=== PATIENT | male | born 1950 | race Caucasian/White ===

== ENCOUNTER 2017-08-02 18:00 | Inpatient (IN) | payer OTHER ==
[~2017-08-02] VITALS: Ht 182.9 cm; Wt 140.6 kg
--- NOTE | ~2017-08-02 | H ---
[facility] [place] [address] HISTORY AND PHYSICAL Name: MIK ARAGON JR Room #: 363-P [facility] IN .R.#: [id number] Admission: 08/02/17 Attend Phys: Manolo Oreilly MD Discharge: Date of : 46 Report #: [id number] THIS REPORT FOR: //name// CC: Manolo Oreilly DATE OF SERVICE: 08/03/2017 CHIEF COMPLAINT: Malodorous drainage from his left foot. HISTORY OF PRESENT ILLNESS: Things had been especially busy at work, but this evening, he noticed drainage coming from his left foot that smelled bad. He came to the Emergency Room and was found to have a large subcutaneous collection of drainage and an obviously infected diabetic foot infection. There was a surrounding redness occupying most of the bottom of his left foot. Because of his diabetic neuropathy, he had no pain and actually no sensation at all in his left foot. Because of the presence of a diabetic foot ulcer, admission is indicated for full evaluation including drainage of the subcutaneous fluid collection and intravenous antibiotics, empirically initially and then guided by culture results. PAST MEDICAL HISTORY: He had a similar problem with his left foot before 2010. He stepped on a dog bone that was on the floor while walking barefoot, and then noticed the development of warmth and drainage around the bottom of the foot and was admitted to the hospital for treatment on 02/02/2012. PAST MEDICAL HISTORY: He has a long history of morbid obesity and type 2 diabetes. His blood sugars have been well controlled over the last several years, but more than likely, uncontrolled for many years before then because he has developed a diabetic neuropathy. He has very little sensation in his feet. He has obstructive sleep apnea accompany his obesity, but he does not tolerate a CPAP mask, and ends up sleeping on his side or on his stomach. He has had 44 events per sleep hour that responded to CPAP in the sleep lab, but he has been unable to tolerate it at home. 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 He had an episode of cellulitis in his right leg 8-10 years ago, he has hyperlipidemia, he has had gout in the past, and he has hyperuricemia treated with allopurinol. In 2011 his insisted that he take an antidepressant medication because he was "too cranky." Since then, his crankiness has responded to this low dose of fluoxetine and is to his 's satisfaction. He has COPD, and did require prednisone and inhalers several years ago after a [facility] [address] [place] [address] HISTORY AND PHYSICAL Name: MIK ARAGON Room #: 363-P [facility] IN M.R.#: [id number] Admission: 08/02/17 Attend Phys: Manolo Oreilly MD Discharge: Date of : 46 Report #: [id number] week with his friends at the [facility] included a good cigars. He stopped smoking. He did have some cough related to metoprolol, which resolved when it was switched to Bystolic and he has been cough free since that time. CURRENT MEDICATIONS: Spironolactone 25 mg twice a day, chlorthalidone 50 mg daily, minoxidil 10 mg twice daily, Janumet mg once daily, fluoxetine 10 mg daily, Levemir 5 units at bedtime, Victoza 1.8 mg daily, pravastatin 40 mg daily, baby aspirin daily, Bystolic 10 mg daily, allopurinol 100 mg once daily, lisinopril 40 mg daily in the evening. ALLERGIES: None known, he does develop some breathing difficulties while taking metoprolol extended release, which he does not have on Bystolic. REVIEW OF SYSTEMS: Entirely negative he reports other than the HPI above. FAMILY HISTORY: Noncontributory. SOCIAL HISTORY: He continues to overeat. His blood sugars are well controlled and his recent hemoglobin A1c was less than 6.0. 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 OBJECTIVE: GENERAL: On exam shows a 66-year-old male in no acute distress. He really did not want to stay in the hospital, but acquiesced. HEENT: Unremarkable. LUNGS: Clear. CARDIOVASCULAR: The heart tones are normal and his rhythm is minimally irregular. ABDOMEN: Soft, nontender, without hepatosplenomegaly or masses. EXTREMITIES: There is some mild edema in both lower extremities. The skin of the uninvolved right foot is intact. There is an absence of sensation to light touch, and a large callus on his great toe is intact also. His left foot shows a large fluid collection underneath the plantar skin coming up the medial surface of the foot. There are Charcot deformities suggested. There is mild redness beginning at the metatarsophalangeal junction and extending to the calcaneus, and up to the top of the foot. Palpation is nontender. There is some mild warmth present. The skin over the ulcer site is intact. ASSESSMENT: 1. Left-sided diabetic foot infection. 2. He is at risk for having already developed osteomyelitis. 3. Type 2 diabetes with dietary noncompliance in good numbers. 4. History of gout. 5. Chronic obstructive pulmonary disease, not tolerant to metoprolol succinate. 6. Hypertension. [facility] [address] [place] [address] HISTORY AND PHYSICAL Name: MIK ARAGON Room #: 363-P ADM IN M.R.#: [id number] Admission: 08/02/17 Attend Phys: Manolo Oreilly MD Discharge: Date of : 46 Report #: [id number] 7. Chronic kidney disease. 8. Hyperlipidemia, on pravastatin. 9. Mild depression/anxiety, well stabilized with fluoxetine. 10. Other medical problems as in the history and physical. PLAN: He is admitted at this time. Intravenous antibiotics are being started. He is being placed on intravenous fluids because he will be n.p.o. in the morning for possible interventions if indicated. He remains a full code. By: 38 35 Manolo Oreilly MD /nt
--- NOTE | ~2017-08-02 | EKG ---
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 : 1950 Requested By: Manolo Oreilly Order Number: [id number] MD: Jason Lam Measurements Intervals Brackney Rate: 58 P: 51 SC: QRS: -3 QRSD: 107 T: 64 QT: 462 QTc: 454 Interpretive Statements Sinus rhythm Second deg AVB, Mobitz I (Sun) Abnormal R-wave progression, early transition Baseline wander in lead(s) V3 Compared to ECG 01/29/2014 11:32:20 Mobitz type I heart block is now present Electronically Signed On 08-03-2017 15:47:29 CDT by Jason Lam [email or web address] <ELECTRONICALLY SIGNED> By: Jason Lam MD, [facility] 08/03/17 1547 [id number] [id number] Jason Lam MD, [facility] /EPI
--- NOTE | ~2017-08-02 | P ---
[facility] [place] [address] PROCEDURE REPORT Name: MIK ARAGON JR Room #: 363-P [facility] IN ..#: [id number] Admission: 08/02/17 Attend Phys: Manolo Oreilly MD Discharge: Date of : 46 Report #: [id number] THIS REPORT FOR: //name// CC: Manolo Oreilly DATE OF SERVICE: 08/03/2017 Wound Care Procedure Note DATE OF SERVICE: 08/03/2017 PERSONAL PHYSICIAN: Manolo Oreilly MD CHIEF COMPLAINT: Left diabetic foot infected blister. HISTORY OF PRESENT ILLNESS: This is a 66-year-old white male with a longstanding history of diabetes and diabetic neuropathy, who is being admitted for cellulitis of his left foot secondary to an infected bullous blister on the plantar aspect of his left foot. I was asked to debride the foot to perform incision and drainage of this blister. PREPROCEDURE DIAGNOSES: 1. Diabetic foot wound with a bullous blisters and cellulitis. 2. Diabetes mellitus with neuropathy. 3. Morbid obesity. POSTPROCEDURE DIAGNOSES: 1. Diabetic foot wound with a bullous blisters and cellulitis. 2. Diabetes mellitus with neuropathy. 3. Morbid obesity. PROCEDURE PERFORMED: This incision and drainage of an infected diabetic foot wound. DESCRIPTION OF PROCEDURE: After timeout was taken, verbal consent was obtained, the patient had incision and drainage of the bolus lesion using #10 blade and forceps. No anesthesia was used because of the neuropathy. 100% of the bullous lesion was debrided for a total of 45 square cm that were debrided. Preprocedure measurements were 5.0 x 9.0 cm. Post-debridement measurements were 5.0 x 9.1 x 0.5 cm. Bleeding was minimal, easily controlled with pressure. The patient tolerated procedure well. Post-debridement, the patient had a sterile [facility] [address] [place] [address] PROCEDURE REPORT Name: MIK ARAGON Room #: 363-P [facility] IN [facility].#: [id number] Admission: 08/02/17 Attend Phys: Manolo Oreilly MD Discharge: Date of : 46 Report #: [id number] silver foam dressing placed over the wound. Total debridement measurements were 45 square cm. By: 1859 0310 Srini Vázquez MD /nt
--- NOTE | ~2017-08-02 | HC ---
[facility] [place] [address] CONSULTATION Name: MIK ARAGON JR Room #: 363-P [facility] IN ..#: [id number] Admission: 08/02/17 Attend Phys: Manolo Oreilly MD Discharge: Date of : 48 Report #: [id number] THIS REPORT FOR: //name// CC: Manolo Oreilly DATE OF SERVICE: 08/03/2017 ATTENDING PHYSICIAN: Manolo Oreilly. REASON FOR CONSULTATION: Antibiotic management. HISTORY OF PRESENT ILLNESS: The patient is a 66-year-old white man with diabetes mellitus who developed left foot infection with some wounds and malodorous drainage. The patient is seen in the Emergency Room holding area on 08/03 and he underwent debridement of callus on the sole of the foot. He denies having had fever. PAST MEDICAL HISTORY: Hypertension. Diabetes mellitus. Gout. Left knee replacement. Charcot joint, left foot worse than right. Peripheral neuropathy. Obesity. Obstructive sleep apnea. Previous episode of foot cellulitis in 01/2012. DRUG ALLERGIES: None listed. MEDICATIONS: The patient on treatment with Zosyn 3.375 grams IV every 8 hours. I added vancomycin on the date of admission and pharmacy managing, vancomycin dosing is 1250 mg IV every 8 hours. Atorvastatin 10 mg daily, spironolactone 25 b.i.d., minoxidil 10 mg b.i.d., fluoxetine 10 mg daily, chlorthalidone 50 mg daily, metformin 1 g b.i.d., linagliptin 5 mg b.i.d., insulin lispro per sliding scale, p.r.n. ondansetron, hydrocodone, acetaminophen and sodium chloride infusion was discontinued. SOCIAL HISTORY: See H and P, old records. FAMILY HISTORY: See H and P, old records. REVIEW OF SYSTEMS: Essentially noncontributory besides what has been stated above. PHYSICAL EXAMINATION: GENERAL: Well-developed man, not toxic looking. VITAL SIGNS: Temperature 98.3, pulse 64, respirations 15 and BP 141/84. Height 6 feet, weight 310 pounds. HEENMT: Within range. NECK: Supple, no thyromegaly. LUNGS: Clear. [facility] [address] [place] [address] CONSULTATION Name: MIK ARAGON Room #: 363-P ADM IN M.R.#: [id number] Admission: 08/02/17 Attend Phys: Manolo Oreilly MD Discharge: Date of : 48 Report #: [id number] HEART: S1 and S2. No gallop. ABDOMEN: Obese, soft and no masses or megaly. EXTREMITIES: There are a couple of ulcerations on the sole of the left foot, recently debrided. The temperature of the entire left foot and leg is increased compared to the right. NEUROLOGIC: Decreased sensation in the lower extremities. LABORATORY DATA: Sodium 139, potassium 4.2, BUN 21, creatinine 1.1, glucose 121 and albumin 3.5. CRP 60.5 mg/L. WBC 11.3, hemoglobin 13.2 and platelets 259,000. ESR 49 mm per hour. MRSA by PCR negative. MICROBIOLOGY DATA: Foot culture was obtained on 08/02, no results are available on computer at the time of this dictation. RADIOLOGY EVALUATION: X-ray of the left foot revealed nonunited transverse fracture of second and third metatarsals proximally and Charcot's deformity of the midfoot. Arterial ultrasound, no significant abnormalities. MRI of the left foot revealed Charcot's arthropathy of the midfoot and no evidence of osteomyelitis or soft tissue abscess. ASSESSMENT: 1. Left diabetic foot infection, cellulitis, undetermined organism. 2. Diabetes mellitus. 3. Charcot joint, left foot, worse than right. 4. Azotemia, improved. SUGGESTIONS: Recommend continue treatment with Zosyn and added vancomycin. We will streamline antibiotics once culture results are available hopefully within 24 hours, has been already almost 48 hours since samples were sent and nothing on computer yet. Dr. Oreilly, thank you for requesting my suggestions in the care of your patient. <ELECTRONICALLY SIGNED> By: Neil Berry MD 08/05/17 0848 1339 0014 Neil Berry MD /nt
--- NOTE | ~2017-08-02 | HC ---
[facility] [place] [address] CONSULTATION Name: MIK ARAGON JR Room #: 363-P ADM IN ..#: [id number] Admission: 08/02/17 Attend Phys: Manolo Oreilly MD Discharge: Date of : 46 Report #: [id number] THIS REPORT FOR: //name// CC: Manolo Oreilly DATE OF SERVICE: 08/04/2017 PERSONAL PHYSICIAN: Dr. Manolo Oreilly. CHIEF COMPLAINT: Diabetic foot ulcer. HISTORY OF PRESENT ILLNESS: This is a 66-year-old white male who stated over the past 2-3 days, he noticed he was having some drainage coming from a blister on the bottom part of his left foot. The patient states it started to have a bad smell and started having somewhat redness. He contacted his primary care physician, Dr. Oreilly, who recommended he go to the Emergency Department at that point in time. The patient was seen in the Emergency Department and was felt to have an infected diabetic foot ulcer with cellulitis. The patient because of his significant diabetic neuropathy has no pain in his foot. The patient admits to the fact that he is on his feet quite a bit of time and recently was on a trip where he did a lot of walking. The patient states he has had a previous ulcer on his foot in the past. The patient at that time actually was admitted to the hospital for IV antibiotics several years ago. I have been asked to follow the patient for the diabetic foot ulcer. The patient denies any pain. The patient states that he thinks the wound has been there to the best of his knowledge approximately 2-3 days. The patient denies any fevers, but does state he had a slight chill. PAST MEDICAL HISTORY: Significant for morbid obesity, type 2 diabetes, diabetic neuropathy, sleep apnea, hypertension, previous cellulitis several years ago and COPD. CURRENT MEDICATIONS: Multiple. I reviewed the patient's list. DRUG ALLERGIES: None. SOCIAL HISTORY: The patient has a remote history of smoking cigars. The patient drinks socially. 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 FAMILY HISTORY: Not pertinent to current medical condition. REVIEW OF SYSTEMS: CONSTITUTIONAL: The patient had chills at home, but denies actual fevers. NEUROLOGIC: The patient complains of neuropathy in his feet, but denies headache. [address] [address] CONSULTATION Name: MIK ARAGON Room #: 363-P [facility] IN ..#: [id number] Admission: 08/02/17 Attend Phys: Manolo Oreilly MD Discharge: Date of : 46 Report #: [id number] EYES: No complaints. ENT: No complaints. CARDIAC: The patient denies chest pain, palpitations, has chronic mild lower extremity edema. RESPIRATORY: The patient denies shortness of breath, cough, but has occasional wheezes secondary to COPD. GASTROINTESTINAL: The patient denies nausea, vomiting or abdominal pain. GENITOURINARY: The patient denies urgency or frequency. MUSCULOSKELETAL: No complaints. SKIN: The patient has ulceration on the plantar aspect of his left foot. PHYSICAL EXAMINATION: VITAL SIGNS: Temperature 36.8, pulse 64, respirations 15, BP 141/84. GENERAL: He is alert and oriented x 3, pleasant white male who is in no acute distress. HEENT: Normocephalic, atraumatic. Mucous membranes are moist. Pupils are round. Sclerae white. NECK: Supple, nontender. LUNGS: Slight diminished breath sounds heard throughout. HEART: Regular. ABDOMEN: Obese, soft, otherwise nontender. EXTREMITIES: The patient has 2+ dorsalis pedis pulses bilaterally, 1+ posterior tibial pulses bilaterally. The patient has 1+ edema bilaterally in both lower extremities. Plantar aspect of the patient's left foot is a fluid-filled blister which measures 5.0 x 9.0 cm and it has a small area of what appears to be seropurulent drainage. There is increased erythema and warmth surrounding this ulceration and slightly fluctuant. No other associated ulcerations are noted. NEUROLOGIC: Cranial nerves 2-12 are grossly intact. Motor and sensory grossly intact. LABORATORY DATA: White count 10.1, hemoglobin 13.1. Sed rate is 49, BUN 21, creatinine 1.1. C-reactive protein is 60.5, albumin 3.5. WOUND CARE COURSE: I spoke at length with the patient. At this point in time, the patient needs incision and drainage of this wound on the plantar aspect of his left foot. Please see separate procedure note for this. The patient did have an x-ray performed in the Emergency Department, which showed no signs of osteomyelitis. There was a Charcot arthropathy noted. MRI of the foot shows severe Charcot arthropathy of the mid foot, but no evidence of osteomyelitis or soft tissue abscess. IMPRESSION: 1. Diabetic foot ulcer on the plantar aspect of his left foot with associated cellulitis. 2. Type 2 diabetes. [facility] [address] [place] [address] CONSULTATION Name: MIK ARAGON JR Room #: 363-P [facility] IN M.R.#: [id number] Admission: 08/02/17 Attend Phys: Manolo Oreilly MD Discharge: Date of : 46 Report #: [id number] 3. Diabetic neuropathy. 4. Morbid obesity. PLAN: At this time, the patient will have bedside debridement. Please see separate dictation note for the procedure. We will place silver foam over the wound after the debridement is performed. The patient initially was scheduled to go to surgery with Dr. Gerardo Talamantes; however, after the debridement was performed, there was no sign of abscess on MRI. Surgery has been canceled. We will order arterial Dopplers to ensure adequate blood flow for healing. We will encourage the patient to continue to maximize his protein supplementation for continued healing as well as tight glycemic control for healing. We will continue to follow the patient. I appreciate the ability to consult. By: 1822 0227 Srini Vázquez MD /nt
[~2017-08-02 18:00] MED LIST: ALLOPURINOL 10100 M1; CHLORTHALIDONE50 MG PO; JANUMET 50-1,01 EACH PO; LISINOPRIL40 MG; MINOXIDIL2.5 MG PO; NORCO 5-325 TA1 EACH PO; PRAVASTATIN SOD20 MG PO; PROMETHAZINE-C120 ML PO; PROZAC 10 MG CA10 MG PO; SPIRONOLACTONE25 M1 PO; TOPROL XL100 MG PO; VICTOZA0.6 MG/0.1 SUBQ
[2017-08-02 19:37] VITALS: BP 114/62
[2017-08-02 21:16] LABS: HEMOGLOBIN 13.7 gm/dL (14.0-18.0); MCH 29.8 pg (26.0-34.0); MCHC 34.4 g/dL (28.0-37.0); MCV 86.7 fL (80.0-100.0); PLATELET COUNT 256 thou/uL (150-400); RBC 4.61 mil/uL (4.50-6.00); RDW 13.4 % (10.5-14.5); WBC 11.6 thou/uL (4.0-11.0)
[2017-08-02 21:25] LABS: CALCIUM 9.2 mg/dL (8.5-10.1); CREATININE 1.3 mg/dL (0.7-1.3); POTASSIUM 4.6 mmol/L (3.5-5.1)
[2017-08-02 21:46] LABS: ABSOLUTE NEUTROPHILS 8.8 thou/uL (1.4-8.2)
[2017-08-03] VITALS (7 sets, daily range): BP systolic 123–159; BP diastolic 60–99
[2017-08-03 04:32] LABS: CALCIUM 9.1 mg/dL (8.5-10.1); CREATININE 1.2 mg/dL (0.7-1.3); POTASSIUM 4.2 mmol/L (3.5-5.1)
[2017-08-03 04:38] LABS: PROTIME 10.2 Seconds (9.3-11.4)
[2017-08-03 04:51] LABS: HEMATOCRIT 38.6 % (42.0-52.0); HEMOGLOBIN 13.1 gm/dL (14.0-18.0); MCH 29.4 pg (26.0-34.0); MCHC 33.9 g/dL (28.0-37.0); MCV 86.7 fL (80.0-100.0); RBC 4.45 mil/uL (4.50-6.00); RDW 13.4 % (10.5-14.5); WBC 10.1 thou/uL (4.0-11.0)
[2017-08-04 03:20] VITALS: BP 127/58
[2017-08-04 04:15] LABS: ABSOLUTE NEUTROPHILS 8.8 thou/uL (1.4-8.2); BASOPHILS 0.5 % (0.0-2.0); EOSINOPHILS 4.2 % (0.0-3.0); HEMATOCRIT 39.6 % (42.0-52.0); HEMOGLOBIN 13.2 gm/dL (14.0-18.0); LYMPHOCYTES 10.5 % (24.0-44.0); MCHC 33.5 g/dL (28.0-37.0); MCV 86.7 fL (80.0-100.0); MONOCYTES 6.7 % (1.0-8.0); PLATELET COUNT 252 thou/uL (150-400); POLYS 78.1 % (36.0-66.0); RBC 4.56 mil/uL (4.50-6.00); RDW 13.6 % (10.5-14.5); WBC 11.3 thou/uL (4.0-11.0)
[2017-08-04 04:17] LABS: ALBUMIN 3.5 g/dL (3.4-5.0); CALCIUM 9.1 mg/dL (8.5-10.1); CREATININE 1.1 mg/dL (0.7-1.3); POTASSIUM 4.2 mmol/L (3.5-5.1); TOTAL BILIRUBIN 0.6 mg/dL (<0.1-1.0); TOTAL PROTEIN 7.3 g/dL (6.4-8.2)
[2017-08-04 07:19] VITALS: BP 133/83
[2017-08-04 11:05] VITALS: BP 141/84
[2017-08-04 15:14] VITALS: BP 144/84
[2017-08-04 20:00] VITALS: BP 140/79
[2017-08-05] VITALS (7 sets, daily range): BP systolic 136–164; BP diastolic 77–107
[2017-08-05] MEDS ORDERED: MINOCYCLINE HC100 M2 PO (19:26)
[2017-08-05] MEDS ORDERED: AUGMENTIN 875-1 EACH PO (19:26)
== END 2017-08-05 20:20 | disposition home health service (06) | DRG 571 ==
LOC: ER 18:00 → EROBS 21:53 → 3W 21:53
PROVIDERS: Emergency Medicine; Internal Medicine
PROC: 0JBR0ZZ Excision of Left Foot Subcutaneous Tissue and Fascia, Open Approach (ICD-10-PCS; principal; 2017-08-03)
DX: L02.612 Cutaneous abscess of left foot (principal); L03.116 Cellulitis of left lower limb; Z68.41 Body mass index [BMI] 40.0-44.9, adult; I44.1 Atrioventricular block, second degree; E66.01 Morbid (severe) obesity due to excess calories; M10.9 Gout, unspecified; Z96.652 Presence of left artificial knee joint; E11.42 Type 2 diabetes mellitus with diabetic polyneuropathy; E78.5 Hyperlipidemia, unspecified; G47.33 Obstructive sleep apnea (adult) (pediatric); I12.9 Hypertensive chronic kidney disease with stage 1 through stage 4 chronic kidney disease, or unspecified chronic kidney disease; E11.610 Type 2 diabetes mellitus with diabetic neuropathic arthropathy; J44.9 Chronic obstructive pulmonary disease, unspecified; E11.621 Type 2 diabetes mellitus with foot ulcer; N18.9 Chronic kidney disease, unspecified; F32.9 Major depressive disorder, single episode, unspecified; F41.9 Anxiety disorder, unspecified; E11.22 Type 2 diabetes mellitus with diabetic chronic kidney disease; Z87.891 Personal history of nicotine dependence; Z91.19 Patient's noncompliance with other medical treatment and regimen
CPT/HCPCS: 10779

== ENCOUNTER → 2017-08-16 | Outpatient (CLI) | payer OTHER ==
[~2017-08-16] MED LIST changes: +AUGMENTIN 875-1 EACH PO; +MINOCYCLINE HC100 M2 PO
== END ==
LOC: HYPER 07:30
DX: E11.621 Type 2 diabetes mellitus with foot ulcer (principal); L97.521 Non-pressure chronic ulcer of other part of left foot limited to breakdown of skin; E11.40 Type 2 diabetes mellitus with diabetic neuropathy, unspecified; E11.22 Type 2 diabetes mellitus with diabetic chronic kidney disease; I12.9 Hypertensive chronic kidney disease with stage 1 through stage 4 chronic kidney disease, or unspecified chronic kidney disease; N18.9 Chronic kidney disease, unspecified; E66.01 Morbid (severe) obesity due to excess calories; G47.30 Sleep apnea, unspecified; J44.9 Chronic obstructive pulmonary disease, unspecified; F32.9 Major depressive disorder, single episode, unspecified; F41.9 Anxiety disorder, unspecified; Z96.652 Presence of left artificial knee joint; Z79.84 Long term (current) use of oral hypoglycemic drugs; Z79.4 Long term (current) use of insulin; Z68.41 Body mass index [BMI] 40.0-44.9, adult; Z87.891 Personal history of nicotine dependence

== ENCOUNTER → 2017-08-19 | Outpatient (CLI) | payer OTHER | LOC: NUC 09:40 | DX: R94.31 Abnormal electrocardiogram [ECG] [EKG] (principal); R06.00 Dyspnea, unspecified ==

== ENCOUNTER → 2017-08-25 | Outpatient (CLI) | payer OTHER | LOC: HYPER 06:48 | DX: E11.621 Type 2 diabetes mellitus with foot ulcer (principal); L97.522 Non-pressure chronic ulcer of other part of left foot with fat layer exposed; E11.40 Type 2 diabetes mellitus with diabetic neuropathy, unspecified; E11.22 Type 2 diabetes mellitus with diabetic chronic kidney disease; I12.9 Hypertensive chronic kidney disease with stage 1 through stage 4 chronic kidney disease, or unspecified chronic kidney disease; N18.9 Chronic kidney disease, unspecified; E11.610 Type 2 diabetes mellitus with diabetic neuropathic arthropathy; L84 Corns and callosities; M10.9 Gout, unspecified; E66.01 Morbid (severe) obesity due to excess calories; E78.5 Hyperlipidemia, unspecified; G47.30 Sleep apnea, unspecified; J44.9 Chronic obstructive pulmonary disease, unspecified; F32.9 Major depressive disorder, single episode, unspecified; F41.9 Anxiety disorder, unspecified; Z68.41 Body mass index [BMI] 40.0-44.9, adult; Z79.84 Long term (current) use of oral hypoglycemic drugs; Z79.4 Long term (current) use of insulin; Z96.652 Presence of left artificial knee joint; Z87.891 Personal history of nicotine dependence ==

== ENCOUNTER → 2017-09-08 | Outpatient (CLI) | payer OTHER | LOC: HYPER 06:43 | DX: E11.621 Type 2 diabetes mellitus with foot ulcer (principal); L97.522 Non-pressure chronic ulcer of other part of left foot with fat layer exposed; E11.40 Type 2 diabetes mellitus with diabetic neuropathy, unspecified; E11.610 Type 2 diabetes mellitus with diabetic neuropathic arthropathy; E11.22 Type 2 diabetes mellitus with diabetic chronic kidney disease; I12.9 Hypertensive chronic kidney disease with stage 1 through stage 4 chronic kidney disease, or unspecified chronic kidney disease; N18.9 Chronic kidney disease, unspecified; L84 Corns and callosities; E78.5 Hyperlipidemia, unspecified; E66.01 Morbid (severe) obesity due to excess calories; G47.30 Sleep apnea, unspecified; M10.9 Gout, unspecified; J44.9 Chronic obstructive pulmonary disease, unspecified; F32.9 Major depressive disorder, single episode, unspecified; F41.9 Anxiety disorder, unspecified; Z96.652 Presence of left artificial knee joint; Z79.84 Long term (current) use of oral hypoglycemic drugs; Z79.4 Long term (current) use of insulin; Z68.41 Body mass index [BMI] 40.0-44.9, adult; Z87.891 Personal history of nicotine dependence ==

== ENCOUNTER → 2017-09-10 | Outpatient (CLI) | payer OTHER | LOC: HYPER 09-09 15:07 | DX: E11.621 Type 2 diabetes mellitus with foot ulcer (principal); L97.522 Non-pressure chronic ulcer of other part of left foot with fat layer exposed; E11.40 Type 2 diabetes mellitus with diabetic neuropathy, unspecified; E11.610 Type 2 diabetes mellitus with diabetic neuropathic arthropathy; E11.22 Type 2 diabetes mellitus with diabetic chronic kidney disease; I12.9 Hypertensive chronic kidney disease with stage 1 through stage 4 chronic kidney disease, or unspecified chronic kidney disease; N18.9 Chronic kidney disease, unspecified; L84 Corns and callosities; I10 Essential (primary) hypertension; M10.9 Gout, unspecified; E66.01 Morbid (severe) obesity due to excess calories; G47.30 Sleep apnea, unspecified; J44.9 Chronic obstructive pulmonary disease, unspecified; F32.9 Major depressive disorder, single episode, unspecified; F41.9 Anxiety disorder, unspecified; Z68.41 Body mass index [BMI] 40.0-44.9, adult; Z96.652 Presence of left artificial knee joint; Z79.84 Long term (current) use of oral hypoglycemic drugs; Z79.4 Long term (current) use of insulin; Z87.891 Personal history of nicotine dependence ==

== ENCOUNTER → 2017-09-16 | Outpatient (CLI) | payer OTHER | LOC: HYPER 07:08 | DX: E11.621 Type 2 diabetes mellitus with foot ulcer (principal); L97.522 Non-pressure chronic ulcer of other part of left foot with fat layer exposed; E11.40 Type 2 diabetes mellitus with diabetic neuropathy, unspecified; E11.22 Type 2 diabetes mellitus with diabetic chronic kidney disease; I12.9 Hypertensive chronic kidney disease with stage 1 through stage 4 chronic kidney disease, or unspecified chronic kidney disease; N18.9 Chronic kidney disease, unspecified; L84 Corns and callosities; E66.01 Morbid (severe) obesity due to excess calories; M10.9 Gout, unspecified; E78.5 Hyperlipidemia, unspecified; G47.30 Sleep apnea, unspecified; J44.9 Chronic obstructive pulmonary disease, unspecified; F32.9 Major depressive disorder, single episode, unspecified; Z79.84 Long term (current) use of oral hypoglycemic drugs; Z79.4 Long term (current) use of insulin; Z68.41 Body mass index [BMI] 40.0-44.9, adult; Z96.652 Presence of left artificial knee joint; Z87.891 Personal history of nicotine dependence ==

== ENCOUNTER → 2017-09-23 | Outpatient (CLI) | payer OTHER | LOC: HYPER 07:03 | DX: E11.621 Type 2 diabetes mellitus with foot ulcer (principal); L97.521 Non-pressure chronic ulcer of other part of left foot limited to breakdown of skin; E11.40 Type 2 diabetes mellitus with diabetic neuropathy, unspecified; E11.22 Type 2 diabetes mellitus with diabetic chronic kidney disease; I12.9 Hypertensive chronic kidney disease with stage 1 through stage 4 chronic kidney disease, or unspecified chronic kidney disease; N18.9 Chronic kidney disease, unspecified; M10.9 Gout, unspecified; E78.5 Hyperlipidemia, unspecified; G47.30 Sleep apnea, unspecified; F41.9 Anxiety disorder, unspecified; F32.9 Major depressive disorder, single episode, unspecified; E66.01 Morbid (severe) obesity due to excess calories; Z79.4 Long term (current) use of insulin; Z68.41 Body mass index [BMI] 40.0-44.9, adult; Z96.652 Presence of left artificial knee joint; Z87.891 Personal history of nicotine dependence ==

== ENCOUNTER → 2017-09-30 | Outpatient (CLI) | payer OTHER | LOC: HYPER 07:12 | DX: E11.621 Type 2 diabetes mellitus with foot ulcer (principal); L97.522 Non-pressure chronic ulcer of other part of left foot with fat layer exposed; E11.40 Type 2 diabetes mellitus with diabetic neuropathy, unspecified; E11.610 Type 2 diabetes mellitus with diabetic neuropathic arthropathy; E11.22 Type 2 diabetes mellitus with diabetic chronic kidney disease; I12.9 Hypertensive chronic kidney disease with stage 1 through stage 4 chronic kidney disease, or unspecified chronic kidney disease; N18.9 Chronic kidney disease, unspecified; E66.01 Morbid (severe) obesity due to excess calories; L84 Corns and callosities; E78.5 Hyperlipidemia, unspecified; G47.30 Sleep apnea, unspecified; M10.9 Gout, unspecified; J44.9 Chronic obstructive pulmonary disease, unspecified; F32.9 Major depressive disorder, single episode, unspecified; F41.9 Anxiety disorder, unspecified; Z79.4 Long term (current) use of insulin; Z68.41 Body mass index [BMI] 40.0-44.9, adult; Z79.84 Long term (current) use of oral hypoglycemic drugs; Z87.891 Personal history of nicotine dependence; Z96.652 Presence of left artificial knee joint ==

== ENCOUNTER → 2017-10-07 | Outpatient (CLI) | payer OTHER | LOC: HYPER 07:01 | DX: E11.621 Type 2 diabetes mellitus with foot ulcer (principal); L97.522 Non-pressure chronic ulcer of other part of left foot with fat layer exposed; E11.40 Type 2 diabetes mellitus with diabetic neuropathy, unspecified; E11.610 Type 2 diabetes mellitus with diabetic neuropathic arthropathy; E11.22 Type 2 diabetes mellitus with diabetic chronic kidney disease; I12.9 Hypertensive chronic kidney disease with stage 1 through stage 4 chronic kidney disease, or unspecified chronic kidney disease; N18.9 Chronic kidney disease, unspecified; E66.01 Morbid (severe) obesity due to excess calories; L84 Corns and callosities; M10.9 Gout, unspecified; E78.5 Hyperlipidemia, unspecified; G47.30 Sleep apnea, unspecified; J44.9 Chronic obstructive pulmonary disease, unspecified; F32.9 Major depressive disorder, single episode, unspecified; F41.9 Anxiety disorder, unspecified; Z79.84 Long term (current) use of oral hypoglycemic drugs; Z79.4 Long term (current) use of insulin; Z68.41 Body mass index [BMI] 40.0-44.9, adult; Z96.659 Presence of unspecified artificial knee joint; Z87.891 Personal history of nicotine dependence ==

== ENCOUNTER → 2017-11-04 | Outpatient (CLI) | payer OTHER | LOC: HYPER 07:03 | DX: E11.621 Type 2 diabetes mellitus with foot ulcer (principal); L97.522 Non-pressure chronic ulcer of other part of left foot with fat layer exposed; E11.610 Type 2 diabetes mellitus with diabetic neuropathic arthropathy; E11.40 Type 2 diabetes mellitus with diabetic neuropathy, unspecified; E11.22 Type 2 diabetes mellitus with diabetic chronic kidney disease; I12.9 Hypertensive chronic kidney disease with stage 1 through stage 4 chronic kidney disease, or unspecified chronic kidney disease; N18.9 Chronic kidney disease, unspecified; E66.01 Morbid (severe) obesity due to excess calories; E78.5 Hyperlipidemia, unspecified; J44.9 Chronic obstructive pulmonary disease, unspecified; G47.30 Sleep apnea, unspecified; F32.9 Major depressive disorder, single episode, unspecified; F41.9 Anxiety disorder, unspecified; Z79.4 Long term (current) use of insulin; Z79.84 Long term (current) use of oral hypoglycemic drugs; Z87.891 Personal history of nicotine dependence; Z68.41 Body mass index [BMI] 40.0-44.9, adult; Z96.652 Presence of left artificial knee joint; M10.9 Gout, unspecified ==

== ENCOUNTER → 2017-12-16 | Outpatient (CLI) | payer OTHER | LOC: HYPER 06:57 | DX: E11.621 Type 2 diabetes mellitus with foot ulcer (principal); L97.522 Non-pressure chronic ulcer of other part of left foot with fat layer exposed; L84 Corns and callosities; E11.40 Type 2 diabetes mellitus with diabetic neuropathy, unspecified; E11.610 Type 2 diabetes mellitus with diabetic neuropathic arthropathy; E11.22 Type 2 diabetes mellitus with diabetic chronic kidney disease; I12.9 Hypertensive chronic kidney disease with stage 1 through stage 4 chronic kidney disease, or unspecified chronic kidney disease; N18.9 Chronic kidney disease, unspecified; E66.01 Morbid (severe) obesity due to excess calories; E78.5 Hyperlipidemia, unspecified; G47.30 Sleep apnea, unspecified; J44.9 Chronic obstructive pulmonary disease, unspecified; M10.9 Gout, unspecified; F32.9 Major depressive disorder, single episode, unspecified; F41.9 Anxiety disorder, unspecified; Z68.41 Body mass index [BMI] 40.0-44.9, adult; Z79.4 Long term (current) use of insulin; Z79.84 Long term (current) use of oral hypoglycemic drugs; Z87.891 Personal history of nicotine dependence; Z96.652 Presence of left artificial knee joint ==

== ENCOUNTER → 2018-08-02 | Outpatient (CLI) | payer OTHER | LOC: CAT 09:02 | DX: Z13.6 Encounter for screening for cardiovascular disorders (principal); E78.00 Pure hypercholesterolemia, unspecified; Z82.49 Family history of ischemic heart disease and other diseases of the circulatory system ==

== ENCOUNTER 2019-02-20 15:12 | Emergency (ER) | payer OTHER ==
[~2019-02-20] VITALS: Ht 188 cm; Wt 113.4 kg
[2019-02-20] MEDS ORDERED: AUGMENTIN 875-1 EACH PO (17:37)
[2019-02-20] MEDS ORDERED: KEFLEX500 M1 PO ×2 (17:37→17:39)
[2019-02-20] MEDS ORDERED: BACTRIM DS TAB1 EACH PO (17:39)
[2019-02-20 17:49] VITALS: BP 145/81
== END 2019-02-20 17:50 | disposition home or self-care (01) ==
LOC: ER 15:12
DX: E11.621 Type 2 diabetes mellitus with foot ulcer (principal); L97.511 Non-pressure chronic ulcer of other part of right foot limited to breakdown of skin; I10 Essential (primary) hypertension; E11.610 Type 2 diabetes mellitus with diabetic neuropathic arthropathy; E11.40 Type 2 diabetes mellitus with diabetic neuropathy, unspecified; M10.9 Gout, unspecified; E78.5 Hyperlipidemia, unspecified; G47.33 Obstructive sleep apnea (adult) (pediatric); Z87.891 Personal history of nicotine dependence; Z96.652 Presence of left artificial knee joint

== ENCOUNTER → 2019-04-18 | Outpatient (CLI) | payer OTHER ==
[~2019-04-18] MED LIST changes: +ALLOPURINOL 10100 M3 PO; +ASA81BEC PO; +BACTRIM DS TAB1 EACH PO; +CRESTOR20 MG PO; +EFFIENT10 MG PO; +KEFLEX500 M1 PO; +LEVEMIR FL100 UNIT/2 SUBQ; +LIPITOR40 MG PO; +LISINOPRIL2.5 MG PO; +OZEMPIC0.25 MG/0. SUBQ; +SUPER THERAVIT1 EACH PO
== END ==
LOC: SJCVC 11:24
DX: I44.1 Atrioventricular block, second degree (principal); R94.31 Abnormal electrocardiogram [ECG] [EKG]; I11.0 Hypertensive heart disease with heart failure; I50.9 Heart failure, unspecified; I25.10 Atherosclerotic heart disease of native coronary artery without angina pectoris; J44.9 Chronic obstructive pulmonary disease, unspecified; G47.33 Obstructive sleep apnea (adult) (pediatric); M10.9 Gout, unspecified; E11.40 Type 2 diabetes mellitus with diabetic neuropathy, unspecified; M19.90 Unspecified osteoarthritis, unspecified site; E66.9 Obesity, unspecified; E78.5 Hyperlipidemia, unspecified; Z87.891 Personal history of nicotine dependence; Z72.89 Other problems related to lifestyle; Z79.82 Long term (current) use of aspirin; Z79.899 Other long term (current) drug therapy; Z79.4 Long term (current) use of insulin

== ENCOUNTER 2019-04-25 06:37 | Observation (INO) | payer OTHER ==
[~2019-04-25] VITALS: Ht 182.9 cm; Wt 140.6 kg
[2019-04-25] VITALS (15 sets, daily range): BP systolic 132–151; BP diastolic 59–114
[~2019-04-25 06:37] MED LIST changes: -ALLOPURINOL 10100 M3 PO; -ASA81BEC PO; -CRESTOR20 MG PO; -EFFIENT10 MG PO; -LEVEMIR FL100 UNIT/2 SUBQ; -LIPITOR40 MG PO; -LISINOPRIL2.5 MG PO; -OZEMPIC0.25 MG/0. SUBQ; -SUPER THERAVIT1 EACH PO
[2019-04-25 07:35] LABS: HEMATOCRIT 41.1 % (42.0-52.0); HEMOGLOBIN 13.5 gm/dL (14.0-18.0); MCH 28.8 pg (26.0-34.0); MCV 87.5 fL (80.0-100.0); RBC 4.7 mil/uL (4.50-6.00); RDW 14.1 % (10.5-14.5); WBC 9.3 thou/uL (4.0-11.0)
[2019-04-25] MEDS ORDERED: ASA81BEC PO (07:38)
[2019-04-25] MEDS ORDERED: ALLOPURINOL 10100 M3 PO (07:38)
[2019-04-25] MEDS ORDERED: SUPER THERAVIT1 EACH PO (07:39)
[2019-04-25] MEDS ORDERED: LISINOPRIL2.5 MG PO (07:40)
[2019-04-25] MEDS ORDERED: LEVEMIR FL100 UNIT/2 SUBQ (07:41)
[2019-04-25 07:45] LABS: ANION GAP 6 mmol/L (7-16); BUN 12 mg/dL (7-18); CALCIUM 9.3 mg/dL (8.5-10.1); CHLORIDE 101 mmol/L (98-107); CO2 32 mmol/L (21-32); CREATININE 0.9 mg/dL (0.7-1.3); GLUCOSE 103 mg/dL (74-106); POTASSIUM 3.6 mmol/L (3.5-5.1); SODIUM 139 mmol/L (136-145)
[2019-04-25 07:52] LABS: ALBUMIN 3.5 g/dL (3.4-5.0); CHOLESTEROL 151 mg/dL (<200); HDL CHOLESTEROL 51 mg/dL (>40); LDL CHOLESTEROL 75 mg/dL (<100); SGOT 21 U/L (15-37); SGPT 24 U/L (30-65); TOTAL BILIRUBIN 0.6 mg/dL (<0.1-1.0); TOTAL PROTEIN 6.6 g/dL (6.4-8.2); TRIGLYCERIDE 127 mg/dL (<150); VLDL 25 mg/dL (<40)
[2019-04-25] MEDS ORDERED: OZEMPIC0.25 MG/0. SUBQ (07:52)
--- NOTE | 2019-04-25 11:24 | CATHLAB ---
[facility] [address] [place] [address] INVASIVE PROCEDURE REPORT Name: MIK ARAGON JR Room #: 209-P [facility] M.R.#: [id number] Admission: 04/25/19 Attend Phys: Faheem Pompa MD Discharge: Date of : 46 Report #: [id number] THIS REPORT FOR: cc: Manolo Oreilly MD, Stanley P. MD Park, Jin S. 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 [employer], Camryn Dubon RTR, Amado Blas Ashley RN RN, Karena Winters Monitor Procedures Performed Art Access - R radial artery Left Heart Cath w/or w/o Coronaries 9558749 [facility] 17584 Initial Mod Sed Same Phys/QHP Gr5y 834371 50040 Mod Sed Same Phys/QHP Ea 451799 [facility]USHRA Place w/wo Plasty Single LAD 854825 Hemostasis with Hemoband Indication CHF Current Status: No , Dyspnea Risk Factors Obesity, Peripheral Vascular Disease, HypercholesterolemiaPhysical Activity, Coronary Artery DiseaseHypertension, Diabetes Procedure Narrative The patient was brought electively to the Cardiac Catheterization Laboratory and was prepped and draped in a sterile manner. The Right Wrist^ was infiltrated with 1% Lidocaine subcutaneous anesthesia. A TRANSRADIAL SLENDER 6F GLIDESD-ShareTH KIT #[id number] sheath was inserted into the Right Radial Artery^. Coronary angiography was performed using coronary diagnostic catheters. The right coronary system was accessed and visualized with a 3DRC catheter. The left coronary system was accessed and visualized with a JL 3.5 catheter. The left ventricle was accessed and visualized with a Pigtail catheter. Left ventricular/Aortic Valve gradient assessed via catheter pullback. Left ventriculogram was performed in CLAUDIO projection. Closure device was deployed with a Fr VASC BAND L 27CM #[id number]. The patient [facility] [address] [place] [address] INVASIVE PROCEDURE REPORT Name: MIK ARAGON Room #: 209-P [facility] IN ..#: [id number] Admission: 04/25/19 Attend Phys: Faheem Pompa MD Discharge: Date of : 46 Report #: [id number] tolerated the procedure well and there were no complications associated with the procedure. There was no hematoma. Intraoperative Conscious Sedation Sedation start time: 08:40 Case end Time: 09:38 Fentanyl 50 mcg Versed 1 mg Fluoro Time: 15.23 minutes Dose: DAP 66075.00 cGycm2 3163 mGy Contrast Type and Amount: Omnipaque 220 ml Coronary Angiography The patient's coronary anatomy is right dominant. Diagnostic Cath Left Main The left main artery is a large caliber vessel, with mild disease in the distal segment, 20%. LAD The LAD is a moderate to large caliber vessel, mildly calcified. There is mild disease in the proximal segment, 20-30%. Within the mid segment, there is severe stenosis, 80%. Diagonal 1 This is a moderate size caliber vessel, patent with no flow-limiting lesions. Diagonal 2 This is a moderate size caliber vessel, patent with no flow-limiting lesions. Circumflex This is a small-caliber vessel, supplies one obtuse marginal artery. OM1 This is a small-caliber vessel, patent with no flow-limiting lesions. Right Coronary The RCA is a large, dominant vessel. The proximal and mid segments have moderate to heavy calcifications. There is a mild to moderate stenosis in the proximal segment, 30-40%. In the distal segment, there is a mild to moderate calcified plaque. R PDA This is a moderate size caliber vessel, patent with no flow-limiting lesions. RPLV There are multiple right posterior lateral branches, that extend and supply the lateral wall. These branches are patent with no flow-limiting lesions. Left Ventriculography The left ventricle is normal in size with normal contractility. The left ventricular ejection fraction is estimated to be 55-60%. Hemodynamics The aortic pressure is 115/80 mmHg with a mean of 94 mmHg. The left [facility] [address] [place] [address] INVASIVE PROCEDURE REPORT Name: MIK ARAGON Room #: 209-P [facility] M.R.#: [id number] Admission: 04/25/19 Attend Phys: Faheem Pompa MD Discharge: Date of : 46 Report #: [id number] ventricular pressure is 128/16 mmHg with a mean of mmHg. The left ventricular end diastolic pressure is 23 mmHg. PCI Technique Lesion Percutaneous coronary intervention was performed on the mid left anterior descending artery segment. The lesion stenosis prior to intervention was 80% with ELGIN 3 flow. A VISTA 6FR XB 3.5 #[id number] Guide Catheter was used to engage the ostium. A Luge Wire .014 x 182CM #[id number] Interventional Guidewire was used to cross the lesion. BALLOON DILATION A Balloon catheter Euphora RX 3.0 x 10 #[id number] was inserted and inflated up to 10.00atm for 30seconds. STENT DEPLOYMENT A drug-eluting stent RESOLUTE LEXIS RX 3.5 X 15 #[id number] was inserted and inflated up to 16.00atm for 21seconds. POST STENT DEPLOYMENT BALLOON DILATION A Balloon catheter Euphora NC RX 3.5 x 12 #[id number] was inserted and inflated up to 18.00atm for 25seconds. Final angiography reveals 0 % stenosis with ELGIN 3 flow. Conclusion 1. Successful insertion of a drug-eluting stent into the mid LAD segment. 2. The RCA is a large, dominant vessel with mild to moderate disease. 3. Normal LV systolic function. 4. Recommend dual antiplatelet therapy and aggressive risk factor management. <ELECTRONICALLY SIGNED> By: Faheem Pompa MD 04/25/191121 21 21 Faheem Pompa MD /INF
--- NOTE | 2019-04-25 17:20 | EKG ---
[facility] [place] [address] ELECTROCARDIOGRAM REPORT Name: MIK ARAGON Room #: 209-[facility] M.R.#: [id number] Admission: 04/25/19 Attend Phys: Faheem Pompa MD Discharge: Date of : 46 Report #: [id number] THIS REPORT FOR: cc: Manolo Oreilly MD, Stanley P. MD Couchonnal, Luis F. 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
--- NOTE | 2019-04-25 17:22 | EKG ---
[facility] [address] [employer] [employer] [place] [address] ELECTROCARDIOGRAM REPORT Name: MIK ARAGON Room #: 209-[facility] M.R.#: [id number] Admission: 04/25/19 Attend Phys: Faheem Pompa MD Discharge: Date of : 46 Report #: [id number] THIS REPORT FOR: cc: Manolo Oreilly MD, Stanley P. MD Couchonnal, Luis F. 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 <ELECTRONICALLY SIGNED> By: Domingo Berry MD 04/25/19 1721 22 132 Domingo Berry MD /EPI
--- NOTE | 2019-04-25 18:18 | NUR ---
PT CARE ASSUMED APPROX 1020 POST CARDIAC CATH. ASSESSMENTS CHARTED. DENIES PAIN AND SOA. INTERVENTION FOR POST CATH WITH RADIAL SITE CLOSURE COMPLETED WITHOUT ISSUE AND VSS. DEVICE REMOVED. NO BLEEDING NOTED. FAMILY AT BEDSIDE. ALL DENY QUESTIONS OR CONCERNS REGARDING POC. PT UP WITH STEADY GAIT. NO DISTRESS NOTED.
[2019-04-26 04:40] VITALS: BP 118/94
--- NOTE | 2019-04-26 05:25 | NUR ---
ASSUMED PT CARE AROUND 1900. PT RESTING IN CHAIR WHILE LAST OF POST CATH FLUIDS FINISH. PT HAD NO C/O PAIN. R WRIST SITE IS C/D/I. PT DOES NOT APPEAR TO BE IN ANY NOTED DISTRESS. WILL MONITOR PT VITALS, PAIN, AND CATH SITE THRU NIGHT.
[2019-04-26 06:22] LABS: HEMOGLOBIN 13.1 gm/dL (14.0-18.0); MCH 29.4 pg (26.0-34.0); MCHC 33.6 g/dL (28.0-37.0); MCV 87.3 fL (80.0-100.0); RBC 4.46 mil/uL (4.50-6.00); RDW 14.4 % (10.5-14.5); WBC 8.5 thou/uL (4.0-11.0)
[2019-04-26 06:33] LABS: ALBUMIN 3.3 g/dL (3.4-5.0); CREATININE 0.8 mg/dL (0.7-1.3); POTASSIUM 3.7 mmol/L (3.5-5.1); TOTAL BILIRUBIN 0.8 mg/dL (<0.1-1.0); TOTAL PROTEIN 6.3 g/dL (6.4-8.2)
[2019-04-26 08:08] VITALS: BP 143/77
[2019-04-26] MEDS ORDERED: LIPITOR40 MG PO (08:17)
[2019-04-26] MEDS ORDERED: EFFIENT10 MG PO (08:17)
--- NOTE | 2019-04-26 08:17 | EKG ---
[facility] [place] [address] ELECTROCARDIOGRAM REPORT Name: MIK ARAGON Room #: 209-[facility] M.R.#: [id number] Admission: 04/25/19 Attend Phys: Faheem Pompa MD Discharge: Date of : 46 Report #: [id number] THIS REPORT FOR: cc: Manolo Oreilly MD, Stanley P. MD Couchonnal, Luis F. 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
[2019-04-26] MEDS ORDERED: CRESTOR20 MG PO (08:33)
[2019-04-26 09:29] VITALS: BP 143/77
--- NOTE | 2019-04-26 09:46 | NUR ---
PT CARE ASSUMED APPROX 0700. ASSESSMENT CHARTED. PT DENIES PAIN AND SOA. VSS. UP WITH STEADY GAIT. APPROVED FOR DISCHARGE. POST CATH AND DISCHARGE EDUCATION DONE WITH PT BY DR AND NURSING. PT DENIES QUESITONS OR CONCERNS REGARDING POST HOSPITAL CARES AND F/U. IV OUT, TELE BOX OFF. PT ESCORTED OUT VIA WHEELCHAIR BY NURSING STAFF.
== END 2019-04-26 09:46 | disposition home or self-care (01) ==
LOC: CATH 06:37 → 2N 09:22 → CATH 14:15 → ENTRNSPT 04-26 09:39 → 2N 04-26 09:46
PROVIDERS: ADMIT Internal Medicine Cardiovascular Disease
DX: I25.10 Atherosclerotic heart disease of native coronary artery without angina pectoris (principal)

== ENCOUNTER → 2019-05-18 | Outpatient (CLI) | payer OTHER ==
[~2019-05-18] MED LIST changes: +ALLOPURINOL 10100 M3 PO; +ASA81BEC PO; +CRESTOR20 MG PO; +EFFIENT10 MG PO; +LEVEMIR FL100 UNIT/2 SUBQ; +LIPITOR40 MG PO; +LISINOPRIL2.5 MG PO; +OZEMPIC0.25 MG/0. SUBQ; +SUPER THERAVIT1 EACH PO
== END ==
LOC: SJCVC 10:50
DX: I10 Essential (primary) hypertension (principal); E11.9 Type 2 diabetes mellitus without complications; I25.10 Atherosclerotic heart disease of native coronary artery without angina pectoris; E78.00 Pure hypercholesterolemia, unspecified; Z79.82 Long term (current) use of aspirin; Z79.4 Long term (current) use of insulin; Z79.899 Other long term (current) drug therapy

== ENCOUNTER → 2020-02-06 | Outpatient (CLI) | payer OTHER | LOC: RAD 09:39 | PROVIDERS: ATTEND Internal Medicine | DX: I51.7 Cardiomegaly (principal) ==

== ENCOUNTER → 2020-02-21 | Outpatient (CLI) | payer OTHER | LOC: SJCVCIMAG 08:54 | PROVIDERS: ATTEND Internal Medicine Cardiovascular Disease | DX: I08.3 Combined rheumatic disorders of mitral, aortic and tricuspid valves (principal); I25.10 Atherosclerotic heart disease of native coronary artery without angina pectoris; R94.31 Abnormal electrocardiogram [ECG] [EKG]; I44.1 Atrioventricular block, second degree; E78.00 Pure hypercholesterolemia, unspecified; R60.9 Edema, unspecified; I11.0 Hypertensive heart disease with heart failure; I50.30 Unspecified diastolic (congestive) heart failure; J44.9 Chronic obstructive pulmonary disease, unspecified; E11.9 Type 2 diabetes mellitus without complications; E66.9 Obesity, unspecified; M10.9 Gout, unspecified; M19.90 Unspecified osteoarthritis, unspecified site; Z95.5 Presence of coronary angioplasty implant and graft; Z96.652 Presence of left artificial knee joint; Z79.4 Long term (current) use of insulin; Z79.82 Long term (current) use of aspirin; Z79.899 Other long term (current) drug therapy; Z87.891 Personal history of nicotine dependence ==

== ENCOUNTER → 2020-03-18 | Outpatient (CLI) | payer OTHER | LOC: SJCVC 09:50 | PROVIDERS: ATTEND Internal Medicine Cardiovascular Disease | DX: R94.31 Abnormal electrocardiogram [ECG] [EKG] (principal); I44.39 Other atrioventricular block; I25.10 Atherosclerotic heart disease of native coronary artery without angina pectoris; I44.1 Atrioventricular block, second degree; E78.00 Pure hypercholesterolemia, unspecified; R60.9 Edema, unspecified; I50.30 Unspecified diastolic (congestive) heart failure; I11.0 Hypertensive heart disease with heart failure; Z79.82 Long term (current) use of aspirin; Z79.899 Other long term (current) drug therapy; Z96.659 Presence of unspecified artificial knee joint; Z87.891 Personal history of nicotine dependence; Z72.89 Other problems related to lifestyle ==

== ENCOUNTER → 2020-03-25 | Outpatient (CLI) | payer OTHER | LOC: SJCVC 10:01 | PROVIDERS: ATTEND Internal Medicine Cardiovascular Disease | DX: I25.119 Atherosclerotic heart disease of native coronary artery with unspecified angina pectoris (principal); J45.909 Unspecified asthma, uncomplicated; Z79.82 Long term (current) use of aspirin; Z79.899 Other long term (current) drug therapy ==

== ENCOUNTER → 2020-04-19 | Outpatient (CLI) | payer OTHER | LOC: SJCVCIMAG 08:37 | PROVIDERS: ATTEND Internal Medicine Cardiovascular Disease | DX: I44.1 Atrioventricular block, second degree (principal); I49.3 Ventricular premature depolarization; I11.0 Hypertensive heart disease with heart failure; I50.9 Heart failure, unspecified; E66.9 Obesity, unspecified; E11.9 Type 2 diabetes mellitus without complications; Z79.4 Long term (current) use of insulin; Z87.891 Personal history of nicotine dependence ==

== ENCOUNTER → 2020-07-31 | Outpatient (CLI) | payer OTHER | LOC: SJCVC 10:25 | PROVIDERS: ATTEND Internal Medicine Cardiovascular Disease | DX: R94.31 Abnormal electrocardiogram [ECG] [EKG] (principal); I44.1 Atrioventricular block, second degree; I11.0 Hypertensive heart disease with heart failure; I50.30 Unspecified diastolic (congestive) heart failure; I25.10 Atherosclerotic heart disease of native coronary artery without angina pectoris; E78.00 Pure hypercholesterolemia, unspecified; R60.9 Edema, unspecified; E11.9 Type 2 diabetes mellitus without complications; E66.9 Obesity, unspecified; E78.5 Hyperlipidemia, unspecified; M10.9 Gout, unspecified; J44.9 Chronic obstructive pulmonary disease, unspecified; G47.33 Obstructive sleep apnea (adult) (pediatric); M19.90 Unspecified osteoarthritis, unspecified site; Z79.4 Long term (current) use of insulin; Z79.82 Long term (current) use of aspirin; Z79.899 Other long term (current) drug therapy; Z87.891 Personal history of nicotine dependence; Z82.49 Family history of ischemic heart disease and other diseases of the circulatory system ==

== ENCOUNTER → 2020-11-26 | Outpatient (CLI) | payer OTHER | LOC: SJCVC 09:41 | PROVIDERS: ATTEND Internal Medicine Cardiovascular Disease | DX: R94.31 Abnormal electrocardiogram [ECG] [EKG] (principal); R00.0 Tachycardia, unspecified; I25.10 Atherosclerotic heart disease of native coronary artery without angina pectoris; I11.0 Hypertensive heart disease with heart failure; I50.30 Unspecified diastolic (congestive) heart failure; I44.1 Atrioventricular block, second degree; E78.00 Pure hypercholesterolemia, unspecified; R60.9 Edema, unspecified; M14.60 Charcot's joint, unspecified site; E11.40 Type 2 diabetes mellitus with diabetic neuropathy, unspecified; Z87.891 Personal history of nicotine dependence; Z72.89 Other problems related to lifestyle; Z79.82 Long term (current) use of aspirin; Z79.899 Other long term (current) drug therapy ==